=== PATIENT | male | born 1990 | race Caucasian/White ===

== ENCOUNTER 2017-03-01 18:05 | Emergency (ER) | payer MEDICAID, OTHER ==
[2017-03-01 18:16] VITALS: BP 166/88; PULSE 109; RESP 20; TEMP 97.1; O2SAT 99
[2017-03-01] MEDS ORDERED: Oxycodone/Acetaminophen 5/325 mg Tab PO STA (18:18)
--- NOTE | 2017-03-01 18:22 | ED PDOC ---
Lower Extremity Pain/Injury Time Seen by Provider: 03/01/17 18:15 Chief Complaint (Nursing): Lower Extremity Problem/Injury Chief Complaint (Provider): Lower Extremity Problem/Injury History Per: Patient History/Exam Limitations: no limitations Onset/Duration Of Symptoms: Mins (x 30 minutes) Current Symptoms Are (Timing): Still Present Additional Complaint(s): Gabriel is a 27 year old male who presents to the emergency department with injured right 5th toe s/p striking bed frame prior to arrival. Denies numbness and tingling. Admits to taking ibuprofen for fever. PMD: [facility] - Ankle/Foot Description Of Injury: Struck With Object Past Medical History Reviewed: Historical Data, Nursing Documentation, Vital Signs Vital Signs: Last Vital Signs Temp 97.1 F L 03/01/17 18:12 Pulse 109 H 03/01/17 18:12 Resp 20 03/01/17 18:12 BP 166/88 H 03/01/17 18:12 Pulse Ox 99 03/01/17 18:12 - Medical History PMH: Anxiety, Bipolar Disorder, Depression, Kidney Stones Denies: Diabetes, Hepatitis, HIV, HTN, Seizures, Sexually Transmitted Disease - Surgical History Surgical History: No Surg Hx - Family History Family History: States: Unknown Family Hx - Social History Current smoker - smoking cessation education provided: No Alcohol: None Drugs: Denies - Home Medications Home Medications: Ambulatory Orders Medication Instructions Recorded Citalopram Hydrobromide [Celexa] 30 mg PO DAILY #7 tab 01/20/14 QUEtiapine [SEROquel] 200 mg PO HS #7 tab 01/20/14 traZODone [Desyrel] 50 mg PO HS #7 tab 01/20/14 Acetaminophen with Codeine 1 - 2 tab PO Q6 PRN #12 tablet 03/01/17 [Tylenol with Codeine #3 Tablet] - Allergies Allergies/Adverse Reactions: Allergies Allergy/AdvReac Type Severity Reaction Status Date / Time zolpidem [From Ambien] Allergy tremors Verified 03/01/17 18:12 Review of Systems ROS Statement: Except As Marked, All Systems Reviewed And Found Negative Musculoskeletal: Positive for: Other (Right 5th Toe Injury) Neurological: Negative for: Numbness, Other (Tingling) Physical Exam - Physical Exam Pulses-Dorsalis Pedis (R): 2+ Extremity: Positive for: Tenderness (Right 5th Toe Moderate Tenderness), Capillary Refill (less than 2 seconds), Deformity (Right 5th Toe Lateral Deformity). Negative for: Swelling - ECG O2 Sat by Pulse Oximetry: 99 (RA) Pulse Ox Interpretation: Normal - Progress ED Course And Treament: R 5th toe x-ray: laterally displaced proximal phalanx fx of toe Pt. evaluated by Dr. Salamanca, podiatry resident, who evaluated pt and spoke with Dr. Higgins. Dr. Salamanca performed reduction of fracture in ED. F/U arrangements made for 03/09. Crutches provided. Pt. searched on [place] [employer] and shows only 1 narcotic rx within the last 2 years. Medical Decision Making Medical Decision Making: Time: 18:18 Plan: - Percocet 5/325 mg Tab - Right Foot 5th Digit Toe X-Ray Time: 18:37 Discussed results with patient. X-Ray read and interpreted by me. Pending morgue keeper consultation. Scribe Attestation: Documented by Musa Alvarado, acting as a scribe for Shiraz Matos PA-C Provider Scribe Attestation: All medical record entries made by the Scribe were at my direction and personally dictated by me. I have reviewed the chart and agree that the record accurately reflects my personal performance of the history, physical exam, medical decision making, and the department course for this patient. I have also personally directed, reviewed, and agree with the discharge instructions and disposition. Disposition - Clinical Impression Clinical Impression: Toe fracture - Patient ED Disposition Is Patient to be Admitted: No - Disposition Referrals: Podiatry Clinic [Outside] Disposition: Routine/Home Disposition Time: 19:39 Condition: STABLE Additional Instructions: Follow up with podiatry clinic on 03/09/2016 for further evaluation. Prescriptions: Acetaminophen with Codeine [Tylenol with Codeine #3 Tablet] 1 - 2 tab PO Q6 PRN #12 tablet PRN Reason: Pain Instructions: Crutch Instructions (ED), Toe Fracture (ED) Forms: [facility] (Fijian), [facility] ED School/Work Excuse
[2017-03-01] MEDS ORDERED: Lidocaine 1% Inj (20ml) IJ ONE (18:51)
--- NOTE | 2017-03-01 19:31 | CP.PCM.CON ---
History of Present Illness - History of Present Illness History of Present Illness: 27 year old male with no admitted PMHx seen in ED for painful right fifth digit. Patient states that he banged the toe against his bedframe roughly an hour before coming into the ED and was unable to bear weight immediately afterwards. He also noticed that his toe was pointing in the wrong direction after he hit it. Patient states that he is not in any current pain at the moment and took ibuprofen after he injured himself. Otherwise he is AAO x 3. He denies any other pedal complaints. He denies N/V/F/C/CP/SOB/posterior calf pain. Meds: Cipro All: Zolpidem PSH: Denies FH: Unremarkable SH: Denies tobacco use, social ETOH, denies illicit drug use Review of Systems - Review of Systems Review of Systems: ROS as per HPI. All other systems reviewed and found to be negative Past Patient History - Past Medical History & Family History Past Medical History?: No - Past Social History Alcohol: None Drugs: Denies - CARDIAC Hx Hypertension: No - PULMONARY Hx Respiratory Disorders: No - NEUROLOGICAL Hx Seizures: No - HEENT Hx HEENT Problems: No - RENAL Hx Kidney Stones: Yes - ENDOCRINE/METABOLIC Hx Endocrine Disorders: No - HEMATOLOGICAL/ONCOLOGICAL Hx Human Immunodeficiency Virus (HIV): No - INTEGUMENTARY Hx Dermatological Problems: No - MUSCULOSKELETAL/RHEUMATOLOGICAL Hx Musculoskeletal Disorders: No - GASTROINTESTINAL Hx Hemorrhoids: Yes - GENITOURINARY/GYNECOLOGICAL Hx Sexually Transmitted Disorders: No - PSYCHIATRIC Hx Anxiety: Yes Hx Bipolar Disorder: Yes Hx Depression: Yes - SURGICAL HISTORY Hx Surgeries: No - ANESTHESIA Hx Anesthesia: No Meds Home Medications: Home Medication List Medication Instructions Recorded Confirmed Type Acetaminophen with Codeine 1 - 2 tab PO Q6 PRN #12 tablet 03/01/17 Rx [Tylenol with Codeine #3 Tablet] Allergies/Adverse Reactions: Allergies Allergy/AdvReac Type Severity Reaction Status Date / Time zolpidem [From Ambien] Allergy tremors Verified 03/01/17 18:12 Physical Exam - Constitutional Appears: Well, Non-toxic, No Acute Distress - Extremities Exam Additional comments: LE focused exam: Vasc: DP/PT pulses palpable 2/4 b/l. CFT < 3 seconds to all digits. Skin temperature warm to warm from proximal to distal. Moderate edema noted to right fifth digit. Minimal ecchymosis noted to right fifth digit Neuro: Epicritic and protective sensation grossly intact b/l Derm: No open lesions, wounds, maceration, xerosis or abnormal growths noted b/l MSK: Lateral deviation of right fifth digit noted. No abnormality in coronal plane appreciated. POP to right fifth proximal phalanx. No POP to distal or middle phalanx right fifth digit - Neurological Exam Neurological exam: Alert, Oriented x3 - Psychiatric Exam Psychiatric exam: Normal Affect, Normal Mood Results - Vital Signs Recent Vital Signs: Last Vital Signs Temp 97.1 F L 03/01/17 18:12 Pulse 109 H 03/01/17 18:12 Resp 20 03/01/17 18:12 BP 166/88 H 03/01/17 18:12 Pulse Ox 99 03/01/17 19:25 Assessment & Plan - Assessment and Plan (Free Text) Assessment: 27 year old male seen in ED for displaced fracture of right fifth proximal phalanx with closed reduction performed Plan: Patient seen and evaluated in ED Plan discussed with attending Dr. Higgins Pre-reduction xray: Oblique fracture noted to right fifth proximal phalanx with lateral deviation of fifth digit appreciated. Coalition of distal IPJ noted to fifth digit. Closed reduction of right fifth proximal phalanx performed after application of local anesthetic with 1% lidocaine plain Post-reduction xray: Adequate reduction of fracture right fifth proximal phalanx appreciated Right fifth digit tomas splinted to right fourth digit with coban and tape Patient given crutches, surgical shoe, and note dismissing him from work for the upcoming week Patient advised to take Tylenol or ibuprofen for pain as needed. Patient also advised to remain NWB, keep foot elevated above heart level and ice area regularly Patient to f/u in podiatry clinic on 03/09/17 - Date & Time Date: 03/01/17 Time: 19:55
--- NOTE | 2017-03-02 09:49 | RAD ---
Right 5th digit radiographs Comparison: None available Findings: Oblique displaced fracture of the 5th proximal phalanx with associated soft tissue swelling. The remainder the visualized osseous structures appear intact. No evidence of radiopaque foreign body. Impression: Oblique displaced fracture of the 5th proximal phalanx with associated soft tissue swelling.
--- NOTE | 2017-03-02 09:51 | RAD ---
Right 5th digit radiographs Indication: Postreduction Comparison: Right 5th digit radiographs performed earlier the same day. Findings: Oblique fracture of proximal 5th phalanx appears in improved alignment with associated soft tissue swelling. The remainder the visualized osseous structures appear intact. No evidence of radiopaque foreign body. Impression: Oblique fracture of proximal 5th phalanx appears in improved alignment with associated soft tissue swelling.
== END 2017-03-01 19:47 | disposition home or self-care (01) ==
LOC: H.ER 18:05
DX: S92.511A Displaced fracture of proximal phalanx of right lesser toe(s), initial encounter for closed fracture (principal); W22.03XA Walked into furniture, initial encounter; Z87.442 Personal history of urinary calculi; Z86.59 Personal history of other mental and behavioral disorders